=== PATIENT | male | born 1980 | race American Indian/Alaskan Native ===

== ENCOUNTER 2017-09-18 14:45 | Emergency (ER) | payer OTHER ==
[2017-09-18 15:07] VITALS: BMI 51.5
[2017-09-18 15:14] VITALS: TEMP 98
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
[2017-09-18 16:38] VITALS: BP 125/64; PULSE 69; RESP 18; O2SAT 100
== END 2017-09-18 16:39 | disposition home or self-care (01) ==
LOC: ED 14:45
DX: M25.561 Pain in right knee (principal); F17.210 Nicotine dependence, cigarettes, uncomplicated
CPT/HCPCS: 29530; 73562; 96372; 99285; J1885